=== PATIENT | female | born 1955 | race Caucasian/White ===

== ENCOUNTER 2016-07-23 09:57 | Emergency (ER) | payer MEDICAID ==
[2016-07-23] MEDS ORDERED: NS 1,000 ML IV ONE (10:05)
--- NOTE | 2016-07-23 10:07 | EDPHY ---
H & P Stated Complaint: dizzy/weak Time Seen by Provider: 07/23/16 10:05 HPI/ROS: CHIEF COMPLAINT: Medication mistake HISTORY OF PRESENT ILLNESS: This is a 61-year-old female with a history of coronary artery disease, hypertension, and AFib who inadvertently took an extra carvedilol of this morning. She presented at Urgent Care complaining of some dizziness. She was quite concerned about this event and EN route to the hospital also took a sublingual nitroglycerin. She has not experienced chest pain. During her evaluation at Urgent Care she was noted to have a blood pressure of 88/54. The nurse practitioner caring for her consulted with the cardiology staff who recommended IV fluids and cardiac monitoring. REVIEW OF SYSTEMS: A ten point review of systems was performed and is negative with the exception of the items mentioned in the HPI. - Personal History Current Tetanus/Diphtheria Vaccine: Yes - Medical/Surgical History Hx Asthma: No Hx Chronic Respiratory Disease: No Hx Diabetes: No Hx Cardiac Disease: Yes Hx Renal Disease: No Hx Cirrhosis: No Hx Alcoholism: No Hx HIV/AIDS: No Hx Splenectomy or Spleen Trauma: No Other PMH: A-fib, post [id number]/2014, HTN, neck surgeries/recent which she has a soft collar in her room, pt states she needs a lot of dental work done but is currently not having any mouth pain. - Social History Smoking Status: Current some day smoker Additional Social History: She is retired. She lives with her . - Physical Exam Exam: General Appearance: Alert. Vital signs reviewed. Blood pressure 105/75. Eyes: Pupils equal and round, no conjunctival injection, no discharge. Anicteric. ENT, Mouth: Mucous membranes are moist, no oropharyngeal erythema or edema. Neck: No lymphadenopathy, supple. Respiratory: Lungs are clear to auscultation; no wheezes, rales, or rhonchi. Cardiovascular: Regular rate and rhythm; no murmur, rub, or gallop. Gastrointestinal: Abdomen is soft and nontender, no masses or organomegaly, bowel sounds normal. Skin: Warm and dry, no rashes on exposed skin, normal color. Back: Nontender to palpation over the thoracolumbar spine. No CVAT. Extremities: No lower extremity edema, no calf tenderness or swelling. Neurological: Alert and oriented. Moving all four extremities easily and equally. DEB. EOMI. Facial expression symmetric. Tongue midline. Psychiatric: Normal affect. Constitutional: Initial Vital Signs Temperature (C) 36.5 C 07/23/16 10:02 Heart Rate 69 07/23/16 10:02 Respiratory Rate 18 07/23/16 10:02 Blood Pressure 105/75 07/23/16 10:02 O2 Sat (%) 93 07/23/16 10:02 O2 Delivery Mode Room Air Allergies/Adverse Reactions: morphine Allergy (Verified 07/23/16 09:57) Other-Enter Comments Home Medications: Medication Instructions Recorded Herbals/Supplements -Info Only 1 ea PO DAILY 01/22/14 Lisinopril [Zestril 20 mg (*)] 20 mg PO DAILY 01/22/14 Aspirin [Aspirin 81mg (*)] 81 mg PO DAILY #30 tab 01/27/14 Atorvastatin Calcium [Lipitor 40 40 mg PO DAILY #30 tab 01/27/14 mg (*)] Carvedilol [Coreg (*)] 12.5 mg PO BIDMEAL #60 tab 01/27/14 amLODIPine BESYLATE [Norvasc 5 mg 5 mg PO DAILY #30 tab 01/27/14 (*)] Synthroid 07/23/16 Medical Decision Making ED Course/Re-evaluation: Patient received 1 L of normal saline IV. She was on a child monitor during her stay in the emergency department. Her initial blood pressure was 117/64 which sounds as if it is within her usual range. I think that her dizziness, weakness, and hypotension was due to the fact that she took an extra carvedilol and followed that by a sublingual nitroglycerin. I do not expect her to have long-lasting problems and feel that she can safely return home. Differential Diagnosis: I considered a differential diagnosis that includes but is not limited to medication error, dehydration, blood loss, cardiac arrhythmia. - Data Points Medications Given: Discontinued Medications Sodium Chloride (Ns) 1,000 mls @ 0 mls/hr IV ONCE ONE PRN Reason: Wide Open Stop: 07/23/16 10:06 Last Admin: 07/23/16 10:15 Dose: 1,000 mls Departure - Departure Disposition: Home, Routine, Self-Care Clinical Impression: Hypotension due to drugs Condition: Good Instructions: Hypotension (ED) Additional Instructions: I think your low blood pressure was due to the fact that you took an extra dose of carvedilol in addition to your usual medications and then followed that with a sublingual nitroglycerin. You should take it easy today and be sure that you are eating and drinking adequately throughout the day. If you develop new lightheadedness, fainting, chest pain, or difficulty breathing you should be re- evaluated. Referrals: Curt Carrillo, DO [Primary Care Provider] - As per Instructions
--- NOTE | 2016-07-23 10:29 | CPEKG ---
Heart Rate: 69 RR Interval: 870 P-R Interval: 176 QRSD Interval: 88 QT Interval: 400 QTC Interval: 429 P [place]: 57 QRS [place]: 80 T Wave [place]: 50 EKG Severity - NORMAL ECG - EKG Impression: SINUS RHYTHM Electronically Signed By: Luh Son 23-Jul-2016 21:59:54
[2016-07-23 11:45] VITALS: PULSE 71; RESP 16; O2SAT 94
[2016-07-23 12:41] VITALS: BP 124/82; TEMP 97.9
== END 2016-07-23 12:42 | disposition home or self-care (01) ==
DX: I95.2 Hypotension due to drugs (principal); T44.7X5A Adverse effect of beta-adrenoreceptor antagonists, initial encounter; I10 Essential (primary) hypertension; F17.200 Nicotine dependence, unspecified, uncomplicated; Z79.82 Long term (current) use of aspirin

== ENCOUNTER 2016-08-11 07:51 | Day surgery (SDC) | payer MEDICAID ==
[~2016-08-11 07:51] MED LIST: ASPIRIN EC 325 MG TAB PO ONE; DIAZEPAM 5 MG TAB PO ONE; FAMOTIDINE 20 MG TAB PO ONE; NS 1,000 ML IV ONE; diphenhydrAMINE 25 MG CAP PO ONE
--- NOTE | 2016-08-11 08:14 | CPEKG ---
Heart Rate: 64 RR Interval: 938 P-R Interval: 164 QRSD Interval: 94 QT Interval: 404 QTC Interval: 417 P [place]: 59 QRS [place]: 79 T Wave [place]: 48 EKG Severity - NORMAL ECG - EKG Impression: SINUS RHYTHM Electronically Signed By: Pedro Sanders 12-Aug-2016 06:51:44
[2016-08-11 08:34] LABS: % IMMATURE GRANULYOCYTES 0.2 % (0.0-1.1); ABSOLUTE IMMATURE GRANULOCYTES 0.01 10^3/uL (0.00-0.10); ADD DIFF? NO; ADD MORPH? NO; ADD SCAN? NO; ATYPICAL LYMPHOCYTE FLAG 30 (0-99); FRAGMENT RBC FLAG 0 (0-99); HEMATOCRIT 44.1 % (38.0-47.0); HEMOGLOBIN 15.1 g/dL (12.6-16.3); LEFT SHIFT FLG 0 (0-99); LIPEMIA HEMOLYSIS FLAG 90 (0-99); MEAN CELL HEMOGLOBIN CONCENTR. 34.2 g/dL (32.4-36.7); MEAN CELL VOLUME 90.6 fL (81.5-99.8); MEAN PLATELET VOLUME 9.4 fL (8.7-11.7); PLATELET CLUMPS FLAG 0 (0-99); PLATELET COUNT 234 10^3/uL (150-400); RED BLOOD CELL COUNT 4.87 10^6/uL (4.18-5.33); RED CELL DISTRIBUTION WIDTH 13.7 % (11.5-15.2)
[2016-08-11 08:44] LABS: PROTIME(PATIENT) 13.1 SEC (12.0-15.0)
[2016-08-11] MEDS ORDERED: LIDOCAINE 1% 30 ML SDV ONE (08:48)
[2016-08-11] MEDS ORDERED: IOPAMIDOL (ISOVUE-370) 150 ML BTL IV ONE (08:48)
[2016-08-11] MEDS ORDERED: MIDAZOLAM 2 MG/2 ML VIAL ONE (08:50)
[2016-08-11] MEDS ORDERED: fentaNYL 100 MCG/2 ML INJ ONE (08:50)
[2016-08-11 09:06] LABS: ANION GAP 10 mEq/L (8-16); CARBON DIOXIDE 25 mEq/l (22-31); CHLORIDE 107 mEq/L (97-110); CHOLESTEROL 120 mg/dL (140-220); CHOLESTEROL/HDL RATIO 1.82 RATIO (1.00-4.44); CREATININE 0.7 mg/dL (0.6-1.0); GLOMERULAR FILTRATION RATE > 60; GLUCOSE 94 mg/dL (70-100); HIGH DENSITY LIPOPROTEIN 66 mg/dL (40-85); LDL/HDL RATIO 0.62 RATIO (1.00-3.22); LOW DENSITY LIPOPROTEIN 41 mg/dL (80-100); NON-HIGH DENSITY LIPOPROTEIN 54 mg/dL (90-129); POTASSIUM 4.3 mEq/L (3.5-5.2); SODIUM 142 mEq/L (134-144); TRIGLYCERIDE 67 mg/dL (35-135); VERY LOW DENSITY LIPOPROTEINS 13 mg/dL (8-25)
[2016-08-11] MEDS ORDERED: ATROPINE SULFATE 1 MG/10 ML SYR ONE (09:46)
--- NOTE | 2016-08-11 10:12 | CPIP ---
[f rep st] INVASIVE CARDIAC PROCEDURE DATE OF PROCEDURE: 08/11/2016 PROCEDURE: 1. Coronary angiography. 2. Left ventriculography. INDICATIONS: 1. Known coronary artery ,disease status post percutaneous coronary intervention of her right coron jerman artery. 2. Initial anginal symptoms were cardiac arrest. 3. Abnormal nuclear stress test with inferior ischemia. 4. On optimal medical management. ACCESS: Patient was prepped and draped in sterile fashion. 1% lidocaine was used to anesthetize th e right inguinal region. A 6-American introducer sheath was placed selectively into the right common femoral artery via modified Seldinger technique. CORONARY ANGIOGRAPHY: A 6-American JL4 was advanced to the left main coronary artery, and images obta ined. The left main coronary artery was long and trifurcate into LAD, ramus, and circumflex coronar y arteries. The left main coronary artery appeared normal. The left anterior descending coronary a rtery had mild luminal irregularities in the mid vessel. There was no stenosis greater than 15% to 20%. The ramus coronary artery was a large vessel. The ramus coronary artery served as the left an terior descending coronary artery predominant diagonal territory. The ramus coronary artery appeare d normal. The circumflex coronary artery is nondominant. Circumflex coronary artery gave rise to 2 OM branches. The circumflex coronary artery and its complement of OM branches appeared normal. A 6-American JR4 was advanced to the right coronary artery, and images obtained. The right coronary art shruti is diffusely diseased. In the proximal portion of the right coronary artery, a segmental 20% st enosis can be seen. In the distal portion of the right coronary artery, previously placed stent can be seen. The previously placed stent is widely patent with no evidence of in-stent restenosis. LEFT VENTRICULOGRAPHY: A 6-American pigtail catheter was advanced into the left ventricle, and images obtained. Left ventricle is normal size and normal systolic function. The estimated ejection frac tion is 55%. COMPLICATIONS: None. CONCLUSIONS: 1. Mild coronary artery disease without flow limitation. 2. Patent right coronary artery stent with no evidence of in-stent restenosis. 3. Normal left ventricular size and systolic function. Plan is for medical management. /[id number]/MODL
== END 2016-08-11 14:43 | disposition home or self-care (01) ==
LOC: FCATH 07:51
PROVIDERS: ATTEND Internal Medicine Cardiovascular Disease
PROC: B2151ZZ Fluoroscopy of Left Heart using Low Osmolar Contrast (ICD-10-PCS; principal; 2016-08-11)
PROC: B2111ZZ Fluoroscopy of Multiple Coronary Arteries using Low Osmolar Contrast (ICD-10-PCS; principal; 2016-08-11)
PROC: 4A023N7 Measurement of Cardiac Sampling and Pressure, Left Heart, Percutaneous Approach (ICD-10-PCS; principal; 2016-08-11)
DX: I25.119 Atherosclerotic heart disease of native coronary artery with unspecified angina pectoris (principal); Z95.5 Presence of coronary angioplasty implant and graft; Z98.1 Arthrodesis status; I10 Essential (primary) hypertension; E78.5 Hyperlipidemia, unspecified
CPT/HCPCS: J0461; J1644; J2250; J3010; Q9967